=== PATIENT | female | born 1970 | race African-American/Black ===

== ENCOUNTER 2024-10-28 15:25 | Observation (INO) ==
[2024-10-28] MEDS ORDERED: 0.9 % SODIUM CHLORIDE 1000 ML 1,000 ML IV ONE (15:47)
[2024-10-28] MEDS: 0.9 % SODIUM CHLORIDE 1000 ML 1,000 ML IV STA (15:48)
[2024-10-28 15:57] LABS: Basophils%(Percent) Auto 0.5 (0.1-0.85); Eosinophils#(Absolute)Auto 0.1 (0.0-0.2); Eosinophils%(Percent) Auto 1.2 % (0.4-2.8); Granulocytes % - Auto 63.8 % (47.8-71.3); Granulocytes#(Absolute)- Auto 6.1 (2.3-6.0); Hematocrit 39.9 % (35.9-46.7); Mean Corpuscular Volume 77.2 fl (81.0-93.7); Monocytes #(Absolute)- Auto 0.5 (1.1-3.1); Monocytes %(Percent)- Auto 5.3 % (3.6-9.8); Platelet Count 203 K/uL (152-353); White Blood Count 9.5 K/uL (4.3-9.3)
[2024-10-28 16:05] LABS: Potassium 4.1 mmol/L (3.6-5.2)
--- NOTE | 2024-10-28 16:10 | Emergency Department Note ---
HPI - General Adult General Chief complaint: Altered Mental Status Stated complaint: Confused Time Seen by Provider: 10/28/24 15:31 Source: patient and EMS Mode of arrival: ambulance Limitations: no limitations History of Present Illness HPI narrative: This is a 54 year old female patient that presents to the ER with c/o per home health nurse patient has been confused and dizzy. patient denies any chest pain, SOB, abdominal pain, numbness, tingling, weakness or N/v/D. Onset (ago): hour(s) (2) Associated symptoms: Reports confusion Treatments prior to arrival: Reports none Related Data Home Medications Medication Instructions Recorded Confirmed citalopram 40 mg tablet 40 mg PO DAILY 03/15/24 06/26/24 dicyclomine 10 mg capsule 10 mg PO TID 03/15/24 03/31/24 ergocalciferol (vitamin D2) 1,250 1,250 mcg PO .Weekly 03/15/24 03/31/24 mcg (50,000 unit) capsule (Vitamin D2) fluticasone propionate 50 1 spray intranasal BID 03/15/24 03/31/24 mcg/actuation nasal spray,suspension gabapentin 600 mg tablet 600 mg PO DAILY 03/15/24 06/26/24 levetiracetam 500 mg tablet 1,000 mg PO Q12H 03/15/24 03/31/24 metoprolol succinate 50 mg 50 mg PO DAILY 03/15/24 06/26/24 tablet,extended release 24 hr pantoprazole 40 mg tablet,delayed 40 mg PO DAILY 03/15/24 06/26/24 release thiamine HCl (vitamin B1) 100 mg 100 mg PO DAILY 03/15/24 03/31/24 tablet tramadol 50 mg tablet 50 mg PO Q6H PRN pain 03/31/24 03/31/24 insulin aspart U-100 100 unit/mL 16 unit subcut TID PRN 06/26/24 06/26/24 (3 mL) subcutaneous pen (Novolog hyperglycemia FlexPen U-100 Insulin aspart) insulin glargine 100 unit/mL (3 60 unit subcut QAM 06/26/24 06/26/24 mL) subcutaneous pen (Basaglar KwikPen U-100 Insulin) Previous Rx's Medication Instructions Recorded cyclobenzaprine 10 mg tablet 10 mg PO TID PRN muscle spasm #20 02/28/24 tabs glimepiride 2 mg tablet 1 mg (1/2 x 2 mg) PO QDCC dm #10 06/26/24 tabs benzonatate 100 mg capsule 100 mg PO TID PRN cough #21 caps 09/03/24 Allergies Allergy/AdvReac Type Severity Reaction Status Date / Time [id number] Reductase Allergy Verified 10/28/24 15:56 Inhibitor Review of Systems Status of ROS 10 or more systems reviewed and unremark able except as noted in history and below Constitutional Denies: fever, chills, change in weight, fatigue, malaise or night sweats Eyes Denies: change in vision, blurry vision, blind spots or light sensitivity Ears, nose, mouth, and throat Denies: throat pain, neck pain, throat swelling, difficulty swallowing, hoarseness, mouth pain or swelling of lips/tongue Cardiovascular Reports: lightheadedness; Denies: chest pain, palpitations, edema, swelling of feet/ankles, shortness of breath with exertion, shortness of breath when lying down or leg pain with exertion Respiratory Denies: shortness of breath, cough, wheezing, stridor, pain on inspiration, change in phlegm color or coughing up blood Gastrointestinal Denies: abdominal pain, nausea, vomiting, coffee grounds in vomit, heartburn, diarrhea or constipation Genitourinary Denies: painful urination, urinary frequency, urinary urgency, urinary incontinence, blood in urine or difficulty voiding Musculoskeletal Denies: back pain, neck pain, extremity pain, extremity swelling, joint pain or limited range of motion Integumentary/Breast Denies: rash, itching, redness, skin pain, skin tenderness, skin swelling or sores Neurological Reports: dizziness and confusion; Denies: headache, weakness in extremities, lack of coordination, vertigo or behavioral changes Psychiatric Denies: anxiety, mood swings, panic attacks, change in sleep pattern, hopelessness or loss of interest Endocrine Denies: excessive urination, excessive thirst, fatigue, cold intolerance or excessive sweating Hematologic/Lymphatic Denies: easy bruising, easy bleeding or enlarged lymph nodes Allergic/Immunologic Denies: hives, throat swelling, tongue swelling or facial swelling PFSH [facility] Medical History Patient's noncompliance with other medical treatment and regimen due to unspecified reason Cervical radiculopathy Neuropathy Diabetes HTN (hypertension) GERD (gastroesophageal reflux disease) Altered mental status Hyperglycemia due to type 2 diabetes mellitus Ganglion cyst Arthritis Hyperammonemia Fatty liver Adrenal gland disorder Hypercholesterolemia Surgical History H/O right wrist surgery History of shoulder surgery History of hysterectomy Hx of bladder repair surgery Social History (Updated 06/26/24 @ 00:08 by Marilynn Simmons APRN) Smoking status: never smoker Within the past year, how often did you have a drink containing alcohol: never Within the past year, how often did you have six or more drinks on one occasion: never Score interpretation: A score less than 3 is consistent with normal alcohol consumption. Non-prescribed substance use: denies use Problems where you live: no known problems Highest level of school completed/degree received: decline to answer Little interest or pleasure in doing things: not at all Feeling down, depressed, or hopeless: not at all Feel stressed/tense/nervous/anxious/difficulty sleeping: to some extent Life stressors: unknown source of stress Due to disability, difficulty making decisions: No Exam Constitutional: normal general appearance and no apparent distress Vital Signs - 24 hr 10/28/24 15:25 Temperature 98.0 F Pulse Rate 88 Respiratory Rate 18 Blood Pressure 131/83 Pulse Oximetry 94 L Oxygen Delivery Me thod Room Air HENMT: normocephalic, head/scalp atraumatic, hearing grossly normal bilaterally, external ears normal, EACs normal, nasal mucous membranes normal, external nose normal, oral mucous membranes normal and oropharynx normal Eyes: PERRL, EOMs intact bilaterally, conjunctivae normal and no scleral icterus Neck/C-Spine: visual inspection normal Lymph: no lymphadenopathy noted and no lymphedema noted Chest: inspection of chest normal Respiratory: breath sounds equal bilaterally, normal respiratory effort, clear to auscultation bilaterally, no wheezes, no rales, no retractions, no use of accessory muscles and chest percussion normal Cardiovascular: normal heart rate noted, regular rhythm noted, no gallop, no rub, no murmur, no JVD, no clicks, peripheral pulses 2+ throughout, no bruits noted and no additional abnormal heart sounds Gastrointestinal: abdomen normal to inspection, abdomen soft to palpation, nontender to palpation, nontender to percussion, nondistended, normoactive bowel sounds, no hepatosplenomegaly, no masses, no pulsatile mass, no ascites and no hernia Genitourinary: no CVA tenderness Back/Pelvis: spine normal to inspection Extremities: normal to inspection, normal to palpation, no tenderness, full ROM, no joint enlargement and no deformity Neurology: morgue technician II-XII intact, no movement abnormality noted, no focal motor deficit noted, no sensory deficits noted, speech normal, coordination normal, no pronator drift noted, no fasciculations noted and GCS calculation - Eye opening: Spontaneous Verbal response: Confused Motor response: Obey commands [place] Coma Scale total score: 14 patient A&O to year and name, confused to month, place and president Psychiatry: mental status abnormal, orientation abnormal and cooperative patient A&O to year and name, confused to month, place and president Skin: skin color normal Course Vital Signs Vital signs: Vital Signs Temperature 98.0 F 10/28/24 15:25 Pulse Rate 88 10/28/24 15:25 Respiratory Rate 18 10/28/24 15:25 Blood Pressure 131/83 10/28/24 15:25 Pulse Oximetry 94 L 10/28/24 15:25 Oxygen Delivery Method Room Air 10/28/24 15:25 Temperature 98.0 F 10/28/24 15:25 Pulse Rate 88 10/28/24 15:25 Respiratory Rate 18 10/28/24 15:25 Blood Pressure 131/83 10/28/24 15:25 Pulse Oximetry 94 L 10/28/24 15:25 Oxygen Delivery Method Room Air 10/28/24 15:25 Medical Decision Making Lab Data Labs: Lab Results 10/28/24 10/28/24 Range/Units 15:50 17:25 WBC 9.5 H (4.3-9.3) K/uL RBC 5.2 (4.00-5.50) M/uL Hgb 13.3 (12.5-15.8) gm/dL Hct 39.9 (35.9-46.7) % MCV 77.2 L (81.0-93.7) fl MCH 25.7 L (27.6-32.2) pg MCHC 33.3 (33.1-35.3) g/dl RDW 16.1 H (11.4-14.2) % Plt Count 203 (152-353) K/uL MPV 10.1 (6.9-10.8) fl Gran % 63.8 (47.8-71.3) % Lymph % (Auto) 29.2 (20.0-43.0) % [place] % (Auto) 5.3 (3.6-9.8) % Eos % (Auto) 1.2 (0.4-2.8) % Baso % (Auto) 0.5 (0.1-0.85) Lymph # (Auto) 2.8 (1.1-3.1) [place] # (Auto) 0.5 L (1.1-3.1) Eos # (Auto) 0.1 (0.0-0.2) Baso # (Auto) 0.0 (0.0-0.1) Absolute Gran (auto) 6.1 H (2.3-6.0) Sodium 139 (136-145) mmol/L Potassium 4.1 (3.6-5.2) mmol/L Chloride 104.0 (98-107) mmol/L Carbon Dioxide 29 (21-32) mmol/L Anion Gap 6.0 (4-14) mEq/L BUN 14 (7-18) mg/dL Creatinine 0.7 (0.6-1.3) mg/dL Estimated GFR 101.4 (>59.9) Glucose 272 H (70-110) mg/dL Calcium 8.9 (8.5-10.1) mg/dL Total Bilirubin 0.31 (0.0-1.0) mg/dL AST 16 (15-37) U/L ALT 29 L (30-65) U/L Alkaline Phosphatase 97 (50-136) U/L Troponin I High Sens 6.50 (4.0-60.4) ng/L Total Protein 7.2 (6.4-8.2) g/dL Albumin 3.4 (3.4-5.0) g/dL Urine Color Yellow (STRAW/YELL.) Urine Appearance Clear (CLEAR) Ur Specific [place] 1.010 (1.001-1.035) Urine Protein Negative (NEGATIVE) Urine Glucose (UA) Normal (NORMAL) Urine Ketones Negative (NEGATIVE) Urine Occult Blood Negative (NEG - TRACE) Urine Nitrite Negative (NEGATIVE) Urine Bilirubin Negative (NEGATIVE) Urine Urobilinogen Normal (NORMAL) Ur Leukocyte Esterase Positive (NEGATIVE) Urine RBC 2 - 5 (0 - 5) Urine WBC 2 - 5 ( 0 - 5) Ur Epithelial Cells Negative (Few/HPF) Amorphous Sediment Negative (Negative) Urine Bacteria Trace (Negative) Urine Mucus Negative (Negative) Urine Trichomonas Negative (Negative) Urine Yeast Negative (Negative) Fluid pH 7.0 (5 - 9) Urine Opiates Screen Neg. (NEGATIVE) Urine Methadone Screen Neg. (NEGATIVE) Barbiturate Screen Neg. (NEGATIVE) Ur Phencyclidine Scrn Neg. (NEGATIVE) Amphetamines Screen Neg. (NEGATIVE) U Benzodiazepines Scrn Neg. (NEGATIVE) Urine Cocaine Screen Neg. (NEGATIVE) U Marijuana (THC) Screen Neg. (NEGATIVE) Discharge Plan Discharge Patient Disposition: Admitted As Observation Condition: Stable Chief Complaint: Altered Mental Status Clinical Impression: Altered mental status, UTI (urinary tract infection) Prescriptions: No Action cyclobenzaprine 10 mg tablet 10 mg PO TID PRN (Reason: muscle spasm) Qty: 20 0RF tramadol 50 mg tablet 50 mg PO Q6H PRN (Reason: pain) Patient Comments: TAKE 1 TABLET BY MOUTH EVERY 6 HOURS NEEDED FOR PAIN FOR UP TO 10 DAYS benzonatate 100 mg capsule 100 mg PO TID PRN (Reason: cough) Qty: 21 0RF citalopram 40 mg tablet 40 mg PO DAILY Patient Comments: TAKE 1 TABLET BY MOUTH ONCE DAILY dicyclomine 10 mg capsule 10 mg PO TID Patient Comments: TAKE 1 CAPSULE BY MOUTH 3 TIMES A DAY ergocalciferol (vitamin D2) [Vitamin D2] 1,250 mcg (50,000 unit) capsule 1,250 mcg PO .Weekly Patient Comments: TAKE 1 CAPSULE BY MOUTH ONCE A WEEK ON SUNDAY fluticasone propionate 50 mcg/actuation spray,suspension 1 spray INTRANASAL BID Patient Comments: inhale 1 spray by intranasal route 2 times every day in each nostril gabapentin 600 mg tablet 600 mg PO DAILY Patient Comments: TAKE 1 TABLET BY MOUTH TWICE DAILY levetiracetam 500 mg tablet 1,000 mg PO Q12H Patient Comments: TAKE 2 TABLETS BY MOUTH IN THE MORNING and TAKE 3 TABLETS BY MOUTH IN THE EVENING metoprolol succinate 50 mg tablet extended release 24 hr 50 mg PO DAILY Patient Comments: TAKE 1 TABLET BY MOUTH EVERY DAY pantoprazole 40 mg tablet,delayed release (DR/EC) 40 mg PO DAILY Patient Comments: TAKE 1 TABLET BY MOUTH AT BEDTIME thiamine HCl (vitamin B1) 100 mg tablet 100 mg PO DAILY Patient Comments: TAKE 1 TABLET BY MOUTH EVERY DAY glimepiride 2 mg Tablet 1 mg PO QDCC Qty: 10 0RF insulin glargine [Basaglar KwikPen U-100 Insulin] 100 unit/mL (3 mL) insulin pen 60 unit subcut QAM insulin aspart U-100 [Novolog FlexPen U-100 Insulin] 100 unit/mL (3 mL) insulin pen 16 unit subcut TID PRN (Reason: hyperglycemia) Print Language: American Referrals: Hermila Ulloa [Primary Care Provider] - Time of Disposition: 19:01
[2024-10-28 18:19] LABS: Urine Appearance CLEAR (CLEAR); Urine Blood NEGATIVE (NEG - TRACE); Urine Color YELLOW (STRAW/YELL.); Urine Urobilinogen Normal (NORMAL)
[2024-10-28 18:22] LABS: Amphetamine Screen Urine NEG. (NEGATIVE); Cannabinoid Screen Urine NEG. (NEGATIVE); Cocaine Screen Urine NEG. (NEGATIVE); Methadone Screen Urine NEG. (NEGATIVE); Opiate Screen Urine NEG. (NEGATIVE)
[2024-10-28 18:36] LABS: Urine Amorphous Sediment Negative (Negative); Urine Yeast Negative (Negative)
[2024-10-28] MEDS ORDERED: CEFTRIAXONE SODIUM 1 GM VIAL ONE (19:33)
[2024-10-28] MEDS: CEFTRIAXONE SODIUM 1 GM in 0.9 % SODIUM CHLORIDE MB+ 50 ML IV STA (19:34)
[2024-10-28] MEDS ORDERED: MAGNESIUM, ALUMINUM HYDROXIDE 30 ML ORAL.SUSP PO PRN (19:45)
[2024-10-28] MEDS ORDERED: bisacodyL 10 MG SUPP.RECT PR PRN (19:45)
[2024-10-28] MEDS ORDERED: ACETAMINOPHEN 325 MG TABLET PO PRN (19:45)
[2024-10-28] MEDS ORDERED: ONDANSETRON HCL/PF 4 MG/2 ML VIAL INJ PRN (19:45)
[2024-10-28] MEDS ORDERED: NALOXONE HCL 0.4 MG/ML VIAL IM PRN (19:45)
[2024-10-28] MEDS ORDERED: DOCUSATE SODIUM 100 MG CAPSULE PO PRN (19:45)
[2024-10-28] MEDS ORDERED: INSULIN GLARGINE-YFGN 100 UNIT/ML INSULN.PEN SUBQ SCH (20:00)
[2024-10-28] MEDS: levETIRAcetam 500 MG TABLET PO SCH (21:13)
[2024-10-29] MEDS: GABAPENTIN 300 MG CAPSULE PO SCH (03:17)
[2024-10-29 05:18] LABS: Basophils #(Absolute) Auto 0.1 (0.0-0.1); Basophils%(Percent) Auto 0.7 (0.1-0.85); Eosinophils#(Absolute)Auto 0.1 (0.0-0.2); Eosinophils%(Percent) Auto 1.5 % (0.4-2.8); Granulocytes#(Absolute)- Auto 4.3 (2.3-6.0); Hematocrit 36.7 % (35.9-46.7); Mean Corpuscular Volume 77.5 fl (81.0-93.7); Monocytes #(Absolute)- Auto 0.4 (1.1-3.1); Monocytes %(Percent)- Auto 5.2 % (3.6-9.8); Platelet Count 195 K/uL (152-353); White Blood Count 7.8 K/uL (4.3-9.3)
[2024-10-29 05:33] LABS: Potassium 3.7 mmol/L (3.6-5.2)
[2024-10-29] MEDS: GLIMEPIRIDE 2 MG TABLET PO SCH (08:59)
[2024-10-29] MEDS: METOPROLOL SUCCINATE 25 MG TAB.ER.24H PO SCH (09:01)
--- NOTE | 2024-10-29 10:21 | History & Physical Report ---
H&P: HPI History of Present Illness Chief complaint: Confused Narrative: This is a 54-year-old female patient that presents to the ER with c/o per home health nurse patient has been confused and dizzy. Patient denies any chest pain, SOB, abdominal pain, numbness, tingling, weakness or N/V/D. Admitted to med/surg for further observation and treatment. Review of Systems Status of ROS 10 or more systems reviewed and unremark able except as noted in history and below Constitutional Denies: fever, chills, change in weight, fatigue, malaise or night sweats Eyes Denies: change in vision, blurry vision, blind spots or light sensitivity Ears, nose, mouth, and throat Denies: throat pain, neck pain, throat swelling, difficulty swallowing, hoarseness, mouth pain, swelling of lips/tongue or vertigo Cardiovascular Reports: lightheadedness; Denies: chest pain, palpitations, edema, swelling of feet/ankles, shortness of breath with exertion, shortness of breath when lying down or leg pain with exertion Respiratory Denies: shortness of breath, cough, wheezing, stridor, pain on inspiration, change in phlegm color or coughing up blood Gastrointestinal Denies: abdominal pain, nausea, vomiting, coffee grounds in vomit, heartburn, diarrhea, constipation or difficulty swallowing Genitourinary Denies: painful urination, urinary frequency, urinary urgency, urinary incontinence, blood in urine or difficulty voiding Musculoskeletal Denies: back pain, neck pain, extremity pain, extremity swelling, joint pain or limited range of motion Integumentary/Breast Denies: rash, itching, redness, skin pain, skin tenderness, skin swelling or sores Neurological Reports: dizziness and confusion; Denies: headache, weakness in extremities, lack of coordination, vertigo or behavioral changes Psychiatric Denies: anxiety, mood swings, panic attacks, change in sleep pattern, hopelessness or loss of interest Endocrine Denies: excessive urination, excessive thirst, fatigue, cold intolerance or excessive sweating Hematologic/Lymphatic Denies: easy bruising, easy bleeding or enlarged lymph nodes Allergic/Immunologic Denies: hives, throat swelling, tongue swelling, facial swelling or wheezing [facility] Medical History Patient's noncompliance with other medical treatment and regimen due to unspecif ied reason Cervical radiculopathy Neuropathy Diabetes HTN (hypertension) GERD (gastroesophageal reflux disease) Altered mental status Hyperglycemia due to type 2 diabetes mellitus Ganglion cyst Arthritis Hyperammonemia Fatty liver Adrenal gland disorder Hypercholesterolemia Surgical History H/O right wrist surgery History of shoulder surgery History of hysterectomy Hx of bladder repair surgery Social History Smoking status: never smoker Within the past year, how often did you have a drink containing alcohol: never Within the past year, how often did you have six or more drinks on one occasion: never Score interpretation: A score less than 3 is consistent with normal alcohol consumption. Non-prescribed substance use: denies use Problems where you live: no known problems Highest level of school completed/degree received: decline to answer Little interest or pleasure in doing things: not at all Feeling down, depressed, or hopeless: not at all Feel stressed/tense/nervous/anxious/difficulty sleeping: to some extent Life stressors: unknown source of stress Due to disability, difficulty making decisions: No Meds Home Medications and Allergies Home Medications Medication Instructions Recorded Confirmed Type cyclobenzaprine 10 mg tablet 10 mg PO TID PRN muscle spasm #20 02/28/24 10/28/24 Rx tabs citalopram 40 mg tablet 40 mg PO DAILY 03/15/24 06/26/24 History ergocalciferol (vitamin D2) 1,250 1,250 mcg PO .Weekly 03/15/24 10/29/24 History mcg (50,000 unit) capsule (Vitamin D2) fluticasone propionate 50 1 spray intranasal BID 03/15/24 03/31/24 History mcg/actuation nasal spray,suspension gabapentin 600 mg tablet 600 mg PO DAILY 03/15/24 10/28/24 History levetiracetam 500 mg tablet 1,000 mg PO Q12H 03/15/24 10/28/24 History metoprolol succinate 50 mg 50 mg PO DAILY 03/15/24 10/29/24 History tablet,extended release 24 hr pantoprazole 40 mg tablet,delayed 40 mg PO DAILY 03/15/24 10/29/24 History release glimepiride 2 mg tablet 1 mg (1/2 x 2 mg) PO QDCC dm #10 06/26/24 10/28/24 Rx tabs insulin glargine 100 unit/mL (3 60 unit subcut QAM 06/26/24 06/26/24 History mL) subcutaneous pen (Basaglar KwikPen U-100 Insulin) albuterol sulfate 90 mcg/actuation 2 puff inhalation Q4H PRN 10/29/24 10/29/24 History aerosol inhaler (Ventolin HFA) shortness of breath or wheezing duloxetine 60 mg capsule,delayed 60 mg PO DAILY 10/29/24 10/29/24 History release fenofibrate 160 mg tablet 160 mg PO BEDTIME 10/29/24 10/29/24 History insulin glulisine U-100 100 16 unit subcut TIDAC 10/29/24 10/29/24 History unit/mL subcutaneous pen (Apidra SoloStar U-100 Insulin) zolpidem 10 mg tablet 10 mg PO BEDTIME 10/29/24 10/29/24 History Allergies Allergy/AdvReac Type Severity Reaction Status Date / Time [id number] Reductase Allergy Verified 10/28/24 19:59 Inhibitor Exam Exam: Patient in NAD. Constitutional: abnormal general appearance (chronically ill), no apparent distress, abnormal body habitus (obese), limitations noted (altered mental status) and alert Vital Signs - 24 hr 10/28/24 15:25 10/28/24 16:00 10/28/24 17:00 Temperature 98.0 F Pulse Rate 88 74 84 Pulse Rate [Brachi al] Respiratory Rate 18 18 17 Blood Pressure 131/83 143/81 116/85 Blood Pressure [Ri ght Arm] Pulse Oximetry 94 L 95 94 L [facility] Air 10/28/24 18:00 10/28/24 19:00 10/28/24 19:45 Temperature Pulse Rate 77 72 66 Pulse Rate [Brachi al] Respiratory Rate 18 17 17 Blood Pressure 152/94 162/86 170/77 Blood Pressure [Ri ght Arm] Pulse Oximetry 96 95 95 [facility] 10/28/24 19:45 10/28/24 19:45 10/28/24 23:44 Temperature 97.8 F 97.7 F Pulse Rate Pulse Rate [Brachi al] 87 Respiratory Rate 17 16 Blood Pressure Blood Pressure [Ri t Arm] 150/75 141/76 Pulse Oximetry 99 96 Oxygen Delivery Me thod Room Air Room Air Room Air 10/29/24 03:49 10/29/24 07:56 Temperature 97.7 F 97.8 F Pulse Rate Pulse Rate [Brachi al] 88 79 Respiratory Rate 18 18 Blood Pressure Blood Pressure [Ri t Arm] 156/75 119/65 Pulse Oximetry 97 97 Oxygen Delivery Me thod Room Air Room Air HENMT: normocephalic, head/scalp atraumatic, hearing grossly normal bilaterally, external ears normal, EACs normal, nasal mucous membranes normal, external nose normal, oral mucous membranes normal and oropharynx normal Eyes: PERRL, EOMs intact bilaterally, conjunctivae normal and no scleral icterus Neck/C-Spine: visual inspection normal Lymph: no lymphadenopathy noted and no lymphedema noted Chest: inspection of chest normal Respiratory: breath sounds equal bilaterally, normal respiratory effort, clear to auscultation bilaterally, no wheezes, no rales, no retractions, no use of accessory muscles and chest percussion normal Cardiovascular: normal heart rate noted, regular rhythm noted, no gallop, no rub, no murmur, no JVD, no clicks, peripheral pulses 2+ throughout, no bruits noted and no additional abnormal heart sounds Gastrointestinal: abdomen normal to inspection, abdomen soft to palpation, nontender to palpation, nontender to percussion, nondistended, normoactive bowel sounds, no hepatosplenomegaly, no masses, no pulsatile mass, no ascites and no hernia Genitourinary: no CVA tenderness Back/Pelvis: spine normal to inspection Extremities: normal to inspection, normal to palpation, no tenderness, full ROM, no joint enlargement and no deformity Neurology: functional mental disability teacher II-XII intact, no movement abnormality noted, no focal motor deficit noted, no sensory deficits noted, deep tendon reflexes as noted:, gait abnormality noted (antalgic), speech abnormality noted (slow to answer but can answer questions and text normally), coordination normal, no pronator drift noted, no fasciculations noted and GCS calculation - Eye opening: Spontaneous Verbal response: Orientated Motor response: Obey commands Susie Coma Scale total score: 15 patient A&O to year and name, confused to month, place and president Psychiatry: Mental Status Exam documented within this Exam's Psych section mental status abnormal, orientation abnormal, thought process abnormality noted, cooperative, affect abnormality noted (depressed), psychomotor abnormality noted (slow) and memory abnormal patient A&O to year and name, confused to month, place and president Skin: skin color normal, no rash, no lesions, no ecchymosis noted, no wounds, no lacerations, skin turgor abnormal Reports (tenting), no petechiae, no mottling, nails abnormality noted and no alopecia Assessment and Plan Assessment and Plan (1) Altered mental status: Qualifiers: Altered mental status type: unspecified Qualified Code(s): R41.82 - Altered mental status, unspecified Code(s): R41.82 - Altered mental status, unspecified (2) Hyperglycemia due to type 2 diabetes mellitus: Qualifiers: Diabetes mellitus oysterman insulin use: with care home use Qualified Code(s): E11.65 - Type 2 diabetes mellitus with hyperglycemia; Z79.4 - FCI (current) use of insulin Code(s): E11.65 - Type 2 diabetes mellitus with hyperglycemia (3) Dizziness: Code(s): R42 - Dizziness and giddiness (4) Anemia: Qualifiers: Anemia type: iron deficiency Iron deficiency anemia type: inadequate dietary iron intake Qualified Code(s): D50.8 - Other iron deficiency anemias Code(s): D64.9 - Anemia, unspecified (5) Hypocalcemia: Code(s): E83.51 - Hypocalcemia (6) Hypoalbuminemia: Code(s): E88.09 - Other disorders of plasma-protein metabolism, not elsewhere classified (7) UTI (urinary tract infection): Qualifiers: Hematuria presence: without hematuria Urinary tract infection type: site unspecified Qualified Code(s): N39.0 - Urinary tract infection, site not specified Code(s): N39.0 - Urinary tract infection, site not specified (8) Diabetes: Qualifiers: Diabetes mellitus complication status: with hyperglycemia Diabetes mellitus oysterman insulin use: with oysterman use Diabetes mellitus type: type 2 Qualified Code(s): E11.65 - Type 2 diabetes mellitus with hyperglycemia; Z79.4 - FCI (current) use of insulin Code(s): E11.9 - Type 2 diabetes mellitus without complications (9) HTN (hypertension): Qualifiers: Hypertension type: primary hypertension Qualified Code(s): I10 - Essential (primary) hypertension Code(s): I10 - Essential (primary) hypertension (10) Neuropathy: Code(s): G62.9 - Polyneuropathy, unspecified (11) GERD (gastroesophageal reflux disease): Qualifiers: Esophagitis presence: esophagitis presence not specified Qualified Code(s): K21.9 - Gastro-esophageal reflux disease without esophagitis Code(s): K21.9 - Gastro-esophageal reflux disease without esophagitis (12) Patient's noncompliance with other medical treatment and regimen due to unspecified reason: Code(s): Z91.199 - Patient's noncompliance with other medical treatment and regimen due to unspecified reason Plan Gabapentin 600 mg PO DAILY Glimepiride 1 mg PO QDCC Insulin Glargine-Yfgn 60 unit SUBQ QAM Levetiracetam 1,000 mg PO Q12H Metoprolol Succinate 50 mg PO DAILY Ceftriaxone Sodium 1 gm in Sodium Chloride 50 mls @ 100 mls/hr IV BEDTIME conslted PT/OT Acetaminophen 650 mg PO Q6H PRN Naloxone Hcl 0.4 mg IM ONCE PRN Ondansetron Hcl 4 mg INJ Q6H PRN Magnesium Hydroxide 30 ml PO DAILY PRN Docusate Sodium 100 mg PO DAILY PRN Bisacodyl 10 mg MD DAILY PRN Insulin Regular per sliding scale SUBQ PRN Results Labs Labs: CBC 10/28/24 10/29/24 Range/Units 15:50 04:50 WBC 9.5 H 7.8 (4.3-9.3) K/uL RBC 5.2 4.7 (4.00-5.50) M/uL Hgb 13.3 12.3 L (12.5-15.8) gm/dL Hct 39.9 36.7 (35.9-46.7) % Plt Count 203 195 (152-353) K/uL Gran % 63.8 55.0 (47.8-71.3) % Lymph % (Auto) 29.2 37.6 (20.0-43.0) % Weld % (Auto) 5.3 5.2 (3.6-9.8) % Eos % (Auto) 1.2 1.5 (0.4-2.8) % Baso % (Auto) 0.5 0.7 (0.1-0.85) Lymph # (Auto) 2.8 2.9 (1.1-3.1) Weld # (Auto) 0.5 L 0.4 L (1.1-3.1) Eos # (Auto) 0.1 0.1 (0.0-0.2) Baso # (Auto) 0.0 0.1 (0.0-0.1) Absolute Gran (auto) 6.1 H 4.3 (2.3-6.0) CMP 10/28/24 10/29/24 15:50 04:50 Sodium 139 138 Potassium 4.1 3.7 Chloride 104.0 105.0 Carbon Dioxide 29 28 BUN 14 12 Creatinine 0.7 0.6 Glucose 272 H 271 H Calcium 8.9 8.2 L Liver Function 10/28/24 10/29/24 Range/Units 15:50 04:50 Total Bilirubin 0.31 0.18 (0.0-1.0) mg/dL AST 16 15 (15-37) U/L ALT 29 L 26 L (30-65) U/L Alkaline Phosphatase 97 87 (50-136) U/L Albumin 3.4 3.0 L (3.4-5.0) g/dL Urine 10/28/24 17:25 Urine Color Yellow Urine Appearance Clear Ur Specific [place] 1.010 Urine Protein Negative Urine Glucose (UA) Normal Pulse Oximetry Attestation: I have reviewed the pertinent pulse oximetry results. ECG Attestation: I have reviewed the pertinent ECG results. Imaging Imaging ordered: Chest x-ray and CT scan - head Radiologist's impression: XR CHEST 1V Date of Service: 10/28/24 HISTORY: ams; COMPARISON: September 29, 2024 FINDINGS: The trachea is midline. The cardiac silhouette is borderline or mildly enlarged in size. The lungs are clear without focal infiltrate or effusion. The bony thorax is unremarkable. IMPRESSION: No acute cardiopulmonary disease. HEAD CT WITHOUT INTRAVENOUS CONTRAST Date of Service: 10/28/24 HISTORY: Altered mental status. TECHNIQUE: Spiral axial CT images are obtained through the brain without the administration of intravenous contrast. Sagittal and coronal reformatted images are reconstructed. COMPARISON: Head CT dated September 29, 2024. FINDINGS: The centrum semiovale, basal ganglia, cerebellum, and brainstem are grossly unremarkable for a noncontrast CT scan. There is no acute intracranial hemorrhage, discernible acute infarction, midline shift, or hydrocephalus seen. Atherosclerosis of the carotid siphons is seen. Consider follow-up MRA as clinically warranted. There is a stable large, approximately 2 cm transverse by 1.6 cm CC by 1.9 cm AP, extra-axial mass in the right anterior inferior temporal region (at the superior margin of the right posterior orbital wall); DDx includes calcified meningioma and osteoma. Coronal image 14; axial image 11. No extra-axial abnormal fluid collection is seen. The calvarium is intact. The partially imaged paranasal sinuses, middle ear cavities, and mastoid air cells are clear. IMPRESSION: 1. No intracranial hemorrhage, discernible acute infarction, midline shift, mass effect or hydrocephalus seen. 2. Stable large, approximately 2 cm transverse by 1.6 cm CC by 1.9 cm AP, extra-axial mass in the right anterior inferior temporal region (at the superior margin of the right posterior orbital wall); DDx includes calcified meningioma and osteoma. Coronal image 14; axial image 11. 3. Atherosclerosis of the carotid siphons is seen. 4. Consider followup evaluation with MRI/MRA imaging for further assessment as clinically warranted.
[2024-10-29] MEDS: 0.9 % SODIUM CHLORIDE 500 ML IV ONE (15:17)
[2024-10-29] MEDS: KETOROLAC 30 MG/ML INJ VIAL IVP SCH (15:17)
[2024-10-29] MEDS: PANTOPRAZOLE SODIUM 40 MG TABLET.DR PO SCH (15:17)
[2024-10-29] MEDS ORDERED: 0.9 % SODIUM CHLORIDE 1000 ML 1,000 ML IV SCH (15:30)
[2024-10-29] MEDS: 0.9 % SODIUM CHLORIDE 1000 ML 1,000 ML IV SCH (16:08)
[2024-10-29] MEDS: ENOXAPARIN SODIUM 40 MG/0.4 ML SYRINGE SUBQ SCH (16:08)
[2024-10-29] MEDS: INSULIN GLULISINE SUBQ SCH (17:01)
[2024-10-29] MEDS: CEFTRIAXONE SODIUM 1 GM in 0.9 % SODIUM CHLORIDE MB+ 50 ML IV SCH (20:42)
[2024-10-29] MEDS: CYCLOBENZAPRINE HCL 10 MG TABLET PO PRN (23:09)
[2024-10-30 05:34] LABS: Basophils%(Percent) Auto 0.6 (0.1-0.85); Eosinophils#(Absolute)Auto 0.2 (0.0-0.2); Eosinophils%(Percent) Auto 2.7 % (0.4-2.8); Granulocytes % - Auto 46.1 % (47.8-71.3); Granulocytes#(Absolute)- Auto 2.7 (2.3-6.0); Hematocrit 36.7 % (35.9-46.7); Mean Corpuscular Volume 77.6 fl (81.0-93.7); Monocytes #(Absolute)- Auto 0.4 (1.1-3.1); Monocytes %(Percent)- Auto 6.9 % (3.6-9.8); Platelet Count 161 K/uL (152-353)
[2024-10-30 05:51] LABS: Potassium 3.5 mmol/L (3.6-5.2)
[2024-10-30 07:55] VITALS: BP 184/82; PULSE 85; RESP 19; TEMP 97.9
[2024-10-30] MEDS: DULOXETINE HCL 30 MG CAPSULE.DR PO SCH (09:10)
[2024-10-30] MEDS: CEFTRIAXONE SODIUM 1 GM in 0.9 % SODIUM CHLORIDE MB+ 50 ML IV ONE (09:55)
[2024-10-30] MEDS: MAGNESIUM OXIDE 400 MG TABLET PO ONE (09:55)
[2024-10-30] MEDS ORDERED: CEFTRIAXONE SODIUM 1 GM VIAL IM ONE (10:00)
--- NOTE | 2024-10-30 10:49 | Discharge Summary ---
DS: Providers Provider Date of admission: 10/28/24 18:57 Primary care physician: Hermila Ulloa Admitting clinician: Edda Colon Attending physician on admission: Desiree Handley Attending physician on discharge: Desiree Handley Discharging clinician: Desiree Handley Anticipated date of discharge: 10/30/24 DS: Diagnosis Discharge Diagnosis (1) Altered mental status: Qualifiers: Altered mental status type: unspecified Qualified Code(s): R41.82 - Altered mental status, unspecified (2) Hyperglycemia due to type 2 diabetes mellitus: Qualifiers: Diabetes mellitus rat exterminator insulin use: with prison use Qualified Code(s): E11.65 - Type 2 diabetes mellitus with hyperglycemia; Z79.4 - residential (current) use of insulin (3) Dizziness: (4) Anemia: Qualifiers: Anemia type: iron deficiency Iron deficiency anemia type: inadequate dietary iron intake Qualified Code(s): D50.8 - Other iron deficiency anemias (5) Hypocalcemia: (6) Hypoalbuminemia: (7) UTI (urinary tract infection): Qualifiers: Hematuria presence: without hematuria Urinary tract infection type: site unspecified Qualified Code(s): N39.0 - Urinary tract infection, site not specified (8) Diabetes: Qualifiers: Diabetes mellitus complication status: with hyperglycemia Diabetes mellitus rat exterminator insulin use: with rat exterminator use Diabetes mellitus type: type 2 Qualified Code(s): E11.65 - Type 2 diabetes mellitus with hyperglycemia; Z79 .4 - terminal press operator (current) use of insulin (9) HTN (hypertension): Qualifiers: Hypertension type: primary hypertension Qualified Code(s): I10 - Essential (primary) hypertension (10) Neuropathy: (11) GERD (gastroesophageal reflux disease): Qualifiers: Esophagitis presence: esophagitis presence not specified Qualified Code(s): K21.9 - Gastro-esophageal reflux disease without esophagitis (12) Patient's noncompliance with other medical treatment and regimen due to unspecified reason: Plan Sodium Chloride 1,000 mls @ 125 mls/hr IV CONT Gabapentin 600 mg PO DAILY Glimepiride 1 mg PO QDCC Insulin Glargine-Yfgn 60 unit SUBQ QAM Levetiracetam 1,000 mg PO Q12H Metoprolol Succinate 50 mg PO DAILY Ceftriaxone Sodium 1 gm in Sodium Chloride 50 mls @ 100 mls/hr IV BEDTIME Pantoprazole Sodium 40 mg PO DAILY Enoxaparin Sodium 40 mg SUBQ Q24H Duloxetine Hcl 60 mg PO DAILY Insulin Glulisine U-100 16 unit SUBQ TIDAC Ketorolac Tromethamine 30 mg IVP Q6H Potassium Chloride 40 meq PO ONCE ONE Acetaminophen 650 mg PO Q6H PRN Naloxone Hcl 0.4 mg IM ONCE PRN Ondansetron Hcl 4 mg INJ Q6H PRN Magnesium Hydroxide 30 ml PO DAILY PRN Docusate Sodium 100 mg PO DAILY PRN Bisacodyl 10 mg SC DAILY PRN Insulin Regular per sliding scale SUBQ PRN Cyclobenzaprine Hcl 10 mg PO TID PRN Discharge home for self care. DS: Summary Hospital Course Hospital Course: This is a 54-year-old female patient that presents to the ER with c/o per home health nurse patient has been confused and dizzy. Patient denies any chest pain, SOB, abdominal pain, numbness, tingling, weakness or N/V/D. Admitted to med/surg for further observation and treatment. Patient had some urinary retention through the night; In & Out Catheter performed at night and 600 ML of urine put out. Electrolytes and fluids replenished. Patient is ready to discharge home for self care. Follow up with PCP in 5-7 days of discharge or sooner if needed. Status at Discharge Overall status at discharge: patient is back to baseline Time Spent with Patient Time attestation: Total time spent providing and/or coordinating discharge services: Exam Exam: Patient in NAD. Constitutional: abnormal general appearance (chronically ill), no apparent distress, abnormal body habitus (obese), limitations noted (altered mental status) and alert Vital Signs - 24 hr 10/29/24 11:54 10/29/24 16:11 10/29/24 19:14 Temperature 97.8 F 97.5 F L 98.2 F Pulse Rate [Brachi al] 90 84 81 Respiratory Rate 22 17 19 Blood Pressure [Ri t Arm] 151/91 114/78 170/84 Pulse Oximetry 99 96 98 Oxygen Delivery Me thod Room Air Room Air Room Air 10/29/24 23:27 10/30/24 00:29 10/30/24 03:34 Temperature 97.7 F 97.5 F L Pulse Rate [Brachi al] 75 78 Respiratory Rate 17 21 Blood Pressure [Ri ght Arm] 162/61 148/70 150/70 Pulse Oximetry 99 95 Oxygen Delivery Me thod Room Air Room Air 10/30/24 07:54 Temperature 97.9 F Pulse Rate [Brachi al] 85 Respiratory Rate 19 Blood Pressure [Ri ght Arm] 184/82 Pulse Oximetry 98 Oxygen Delivery Me thod Room Air HENMT: normocephalic, head/scalp atraumatic, hearing grossly normal bila terally, external ears normal, EACs normal, nasal mucous membranes normal, external nose normal, oral mucous membranes normal and oropharynx normal Eyes: PERRL, EOMs intact bilaterally, conjunctivae normal and no scleral icterus Neck/C-Spine: visual inspection normal Lymph: no lymphadenopathy noted and no lymphedema noted Chest: inspection of chest normal Respiratory: breath sounds equal bilaterally, normal respiratory effort, clear to auscultation bilaterally, no wheezes, no rales, no retractions, no use of accessory muscles and chest percussion normal Cardiovascular: normal heart rate noted, regular rhythm noted, no gallop, no rub, no murmur, no JVD, no clicks, peripheral pulses 2+ throughout, no bruits noted and no additional abnormal heart sounds Gastrointestinal: abdomen normal to inspection, abdomen soft to palpation, nontender to palpation, nontender to percussion, nondistended, normoactive bowel sounds, no hepatosplenomegaly, no masses, no pulsatile mass, no ascites and no hernia Genitourinary: no CVA tenderness Back/Pelvis: spine normal to inspection Extremities: normal to inspection, normal to palpation, no tenderness, full ROM, no joint enlargement and no deformity Neurology: newsroom intern II-XII intact, no movement abnormality noted, no focal motor deficit noted, no sensory deficits noted, deep tendon reflexes as noted:, gait abnormality noted (antalgic), speech abnormality noted (slow to answer but can answer questions and text normally), coordination normal, no pronator drift noted, no fasciculations noted and GCS calculation - Eye opening: Spontaneous Verbal response: Orientated Motor response: Obey commands [place] Coma Scale total score: 15 patient A&O to year and name, confused to month, place and president Psychiatry: Mental Status Exam documented within this Exam's Psych section mental status abnormal, orientation abnormal, thought process abnormality noted, cooperative, affect abnormality noted (depressed), psychomotor abnormality noted (slow) and memory abnormal patient A&O to year and name, confused to month, place and president Skin: skin color normal, no rash, no lesions, no ecchymosis noted, no wounds, no lacerations, skin turgor normal, no petechiae, no mottling, nails abnormality noted and no alopecia DS: Data Data Completed and Pending Labs on day of discharge: Labs from last 24 hours 10/30/24 05:30 WBC 6.0 RBC 4.7 Hgb 12.2 L Hct 36.7 MCV 77.6 L MCH 25.8 L MCHC 33.3 RDW 16.0 H Plt Count 161 MPV 9.9 Gran % 46.1 L Lymph % (Auto) 43.7 H [place] % (Auto) 6.9 Eos % (Auto) 2.7 Baso % (Auto) 0.6 Lymph # (Auto) 2.6 [place] # (Auto) 0.4 L Eos # (Auto) 0.2 Baso # (Auto) 0.0 Absolute Gran (auto) 2.7 Sodium 139 Potassium 3.5 L Chloride 107.0 Carbon Dioxide 29 Anion Gap 3.0 L BUN 11 Creatinine 0.6 Estimated GFR 105.3 Glucose 282 H Calcium 8.2 L Phosphorus 3.6 Magnesium 1.7 L Total Bilirubin 0.15 AST 34 ALT 35 Alkaline Phosphatase 91 C-Reactive Protein 0.600 H Total Protein 6.1 L Albumin 2.8 L Preliminary micro results at discharge 10/29/24 15:19 Urine Culture - Preliminary Urine,Clean Catch Imaging CT scan - head: Radiologist's impression: HEAD CT WITHOUT INTRAVENOUS CONTRAST Date of Service: 10/28/24 HISTORY: Altered mental status. TECHNIQUE: Spiral axial CT images are obtained through the brain without the administration of intravenous contrast. Sagittal and coronal reformatted images are reconstructed. COMPARISON: Head CT dated September 29, 2024. FINDINGS: The centrum semiovale, basal ganglia, cerebellum, and brainstem are grossly unremarkable for a noncontrast CT scan. There is no acute intracranial hemorrhage, discernible acute infarction, midline shift, or hydrocephalus seen. Atherosclerosis of the carotid siphons is seen. Consider follow-up MRA as clinically warranted. There is a stable large, approximately 2 cm transverse by 1.6 cm CC by 1.9 cm AP, extra-axial mass in the right anterior inferior temporal region (at the superior margin of the right posterior orbital wall); DDx includes calcified meningioma and osteoma. Coronal image 14; axial image 11. No extra-axial abnormal fluid collection is seen. The calvarium is intact. The partially imaged paranasal sinuses, middle ear cavities, and mastoid air cells are clear. IMPRESSION: 1. No intracranial hemorrhage, discernible acute infarction, midline shift, mass effect or hydrocephalus seen. 2. Stable large, approximately 2 cm transverse by 1.6 cm CC by 1.9 cm AP, extra-axial mass in the right anterior inferior temporal region (at the superior margin of the right posterior orbital wall); DDx includes calcified meningioma and osteoma. Coronal image 14; axial image 11. 3. Atherosclerosis of the carotid siphons is seen. 4. Consider followup evaluation with MRI/MRA imaging for further assessment as clinically warranted. Discharge Plan Discharge Disposition: Home, Self-Care Condition: Improved Discharge Medications: Continued cyclobenzaprine 10 mg tablet 10 mg PO TID PRN (Reason: muscle spasm) Qty: 20 0RF duloxetine 60 mg capsule,delayed release(DR/EC) 60 mg PO DAILY Patient Comments: TAKE 1 CAPSULE BY MOUTH ONCE DAILY Apidra SoloStar U-100 Insulin 100 unit/mL insulin pen 16 unit SUBCUT TIDAC Patient Comments: INJECT 16 UNITS SUBCUTANEOUSLY THREE TIMES DAILY WITH MEALS fenofibrate 160 mg tablet 160 mg PO BEDTIME Patient Comments: TAKE 1 TABLET BY MOUTH EVERY DAY AT BEDTIME albuterol sulfate [Ventolin HFA] 90 mcg/actuation HFA aerosol inhaler 2 puff INHALATION Q4H PRN (Reason: shortness of breath or wheezing) Patient Comments: TAKE 2 PUFFS BY MOUTH EVERY 4 HOURS NEEDED zolpidem 10 mg tablet 10 mg PO BEDTIME Patient Comments: TAKE 1 TABLET BY MOUTH ONCE DAILY AT BEDTIME FOR INSOMNIA citalopram 40 mg tablet 40 mg PO DAILY Patient Comments: TAKE 1 TABLET BY MOUTH ONCE DAILY ergocalciferol (vitamin D2) [Vitamin D2] 1,250 mcg (50,000 unit) capsule 1,250 mcg PO .Weekly Patient Comments: TAKE 1 CAPSULE BY MOUTH ONCE A WEEK ON SUNDAY fluticasone propionate 50 mcg/actuation spray,suspension 1 spray INTRANASAL BID Patient Comments: inhale 1 spray by intranasal route 2 times every day in each nostril gabapentin 600 mg tablet 600 mg PO DAILY Patient Comments: TAKE 1 TABLET BY MOUTH TWICE DAILY levetiracetam 500 mg tablet 1,000 mg PO Q12H Patient Comments: TAKE 2 TABLETS BY MOUTH IN THE MORNING and TAKE 3 TABLETS BY MOUTH IN THE EVENING metoprolol succinate 50 mg tablet extended release 24 hr 50 mg PO DAILY Patient Comments: TAKE 1 TABLET BY MOUTH EVERY DAY pantoprazole 40 mg tablet,delayed release (DR/EC) 40 mg PO DAILY Patient Comments: TAKE 1 TABLET BY MOUTH AT BEDTIME glimepiride 2 mg Tablet 1 mg PO QDCC Qty: 10 0RF insulin glargine [Basaglar KwikPen U-100 Insulin] 100 unit/mL (3 mL) insulin pen 60 unit subcut QAM Discharge Orders: Discharge Order (Routine); Ordered 10/30/24 Ordered By: Desiree Handley Activity: increase activity as tolerated Diet: diabetic diet and low fat, low cholesterol Diet Detail: increase water and zero calorie electrolyte drinks Interventions: Discharge Assessment Last Done: 10/30/24 10:21 MED/SURG & ICU Observation Charge Sheet Last Done: 10/30/24 10:23 Patient Instructions: Dehydration (DC), Urinary Tract Infection in Women (DC) Activity Restrictions/Additional Instructions: increase water and zero calorie electrolyte drinks follow up PCP in 1 week or sooner if fever or any concerns or issues with her urine CONTINUE TAKING ROUTINE HOME MEDICATIONS DIRECTED Forms: Portal/Health Info Access Inst Follow-Ups: Hermila Ulloa [Primary Care Provider] - Discharge Date/Time: 10/30/24 12:24
[2024-10-30] MEDS: POTASSIUM CHLORIDE 20 MEQ TAB.ER.PRT PO ONE (12:12)
== END 2024-10-30 12:24 | disposition home or self-care (01) ==
LOC: ED 15:25 → MS 15:25
PROVIDERS: ADMIT Nurse Practitioner Family; ATTEND Family Medicine
DX: Z88.8 Allergy status to other drugs, medicaments and biological substances; Z79.84 Long term (current) use of oral hypoglycemic drugs; Z91.199 Patient's noncompliance with other medical treatment and regimen due to unspecified reason; E11.42 Type 2 diabetes mellitus with diabetic polyneuropathy; E88.09 Other disorders of plasma-protein metabolism, not elsewhere classified; E11.65 Type 2 diabetes mellitus with hyperglycemia; Z79.4 Long term (current) use of insulin; E83.51 Hypocalcemia; D50.8 Other iron deficiency anemias; Z79.899 Other long term (current) drug therapy; N39.0 Urinary tract infection, site not specified; K21.9 Gastro-esophageal reflux disease without esophagitis; I10 Essential (primary) hypertension